=== PATIENT | female | born 1980 | race Asian ===

== ENCOUNTER → 2017-06-04 | Outpatient (CLI) | payer OTHER ==
--- NOTE | 2017-06-04 13:32 | REP ---
DIGITAL DIAGNOSTIC BILATERAL MAMMOGRAPHY AND FOCUSED LEFT BREAST SONOGRAPHY: History: Left breast mass. Grape sized. No comparison imaging. Findings: Routine views of the right breast were obtained. A opaque skin marker is affixed at the site of the palpable lump in the left breast. This projects in the upper outer quadrant. Routine views of the left breast are augmented by magnified focal spot compression images. The breast parenchyma is heterogeneously quite dense in a pattern which inhibits the sensitivity of mammography. No soft tissue mass is visible at the site of the palpable lump on the left or elsewhere on either side mammographically. No architectural distortion, microcalcification or worrisome skin change is seen. Sonographic findings: Focused left breast sonography is performed from 12 o'clock to 3 o'clock. At the level of palpable lump there is a grouping of multiple cysts adjacent to one another located 3.7 cm from the nipple. This has overall dimensions of 2.1 x 1.6 x 2.5 cm. There is a second grouping of cysts 1.8 x 0.6 x 1.3 cm in overall dimension located 3.0 cm from the nipple also at 1 o'clock. These demonstrate enhanced through transmission and a well defined back wall and are anechoic. Individual cysts within the grouping range from 3-12 mm. Impression: BI-RADS category 2 benign breast imaging. Two groupings of simple cysts adjacent to one another in the upper outer quadrant left breast at the level of palpable finding. Clinical follow-up is advised. This mammogram was interpreted with the aid of an FDA-approved computer-aided detection system. The patient states she/he had a clinical breast exam in September of 2016. The patient letter being requested is M2 dense . Signed by Ej Nunez MD 06/04/2017 03:32 P
== END ==
LOC: M RAD 10:47
PROVIDERS: ATTEND Family Medicine
DX: N63.20 Unspecified lump in the left breast, unspecified quadrant (principal)
CPT/HCPCS: 76642; G0204

== ENCOUNTER → 2017-06-11 | Outpatient (CLI) | payer OTHER ==
[~2017-06-11] MED LIST: BALANCED SALT SOLN OPHTH 15 ML BTL XX ONE; CONRAY-43 43% 50ML VIAL (Q9960) As Ordered ONE; PROPARACAINE 0.5% OPHTH SOL 15ML XX ONE
--- NOTE | 2017-06-12 09:13 | REP ---
Dacryocystography: 21 views. History: Left lacrimal stenosis. 10 seconds of fluoroscopy time is utilized. Procedure: The inferior calculus is cannulated by Dr. Lerma and contrast is injected under fluoroscopy with rapid sequence fluoroscopic spot filming. Findings: Unilateral left-sided dacryocystography is performed. The inferior calculus and common calculus are opacified. Reflux into a normal-appearing superior canaliculus is achieved and there was contrast pooling in the palpebral fissure of the left eye. The nasolacrimal sac is mildly dilated. It is obstructed inferiorly. The duct is not opacified. No contrast was seen spilling into the nasopharynx. Impression: Left nasolacrimal duct obstruction. Signed by Ej Nunez MD 06/12/2017 02:10 P
== END ==
LOC: M RAD 13:59
PROVIDERS: ATTEND Ophthalmology
DX: H04.51 Dacryolith (principal)

== ENCOUNTER 2017-07-30 07:12 | Day surgery (SDC) | payer OTHER ==
[~2017-07-30] VITALS: Ht 160 cm; Wt 71.2 kg
[~2017-07-30 07:12] MED LIST changes: -BALANCED SALT SOLN OPHTH 15 ML BTL XX ONE; -CONRAY-43 43% 50ML VIAL (Q9960) As Ordered ONE; -PROPARACAINE 0.5% OPHTH SOL 15ML XX ONE; +TRINTAB3 PO
[2017-07-30] MEDS ORDERED: LIDOCAINE 1% MDV 20ML VIAL SC ONE (07:30)
[2017-07-30] MEDS ORDERED: LR 1,000 ML IV ONE (07:30)
[2017-07-30] MEDS ORDERED: METHYLENE BLUE 0.5% (5MG/ML) 10 ML AMP (PROVAYBLUE)(Q9968 PER 1MG) As Ordered ONE (08:11)
[2017-07-30] MEDS ORDERED: EPINEPHrine 1MG/ML INJ 30ML MD-VIAL As Ordered ONE (08:11)
[2017-07-30] MEDS ORDERED: LIDOCAINE W/EPINEPHRINE 1% 20ML VIAL As Ordered ONE (08:11)
[2017-07-30] MEDS ORDERED: MIDAZOLAM INJ 2 MG/2 ML VIAL (J2250) As Ordered ONE (08:49)
[2017-07-30] MEDS ORDERED: ROCURONIUM BROMIDE 50 MG/5 ML VIAL As Ordered ONE (08:49)
[2017-07-30] MEDS ORDERED: dexameTHASONE 4 MG/ML 1ML VIAL (J1100) As Ordered ONE (08:49)
[2017-07-30] MEDS ORDERED: ONDANSETRON 4MG/2ML VIAL (J2405) As Ordered ONE (08:49)
[2017-07-30] MEDS ORDERED: PROPOFOL 500 MG/50 ML VIAL As Ordered ONE (08:49)
[2017-07-30] MEDS ORDERED: fentaNYL 250 MCG/5 ML INJECTION (J3010) As Ordered ONE (08:49)
[2017-07-30] MEDS ORDERED: PHENYLephrine HCL 500 MCG/5 ML (100MCG/ML) SYRINGE (J2370) As Ordered ONE (08:51)
[2017-07-30] MEDS ORDERED: NEOSTIGMINE 10 MG/10 ML VIAL (J2710) As Ordered ONE (09:47)
[2017-07-30] MEDS ORDERED: GLYCOPYRROLATE INJ 0.2 MG/ML 2 ML VIAL As Ordered ONE (09:47)
[2017-07-30] MEDS ORDERED: FUROSEMIDE 100 MG/10 ML VIAL (J1940) As Ordered ONE (09:47)
[2017-07-30] MEDS ORDERED: HYDROmorphone HCL 1 MG/ML SYRINGE (J1170) IV PRN (10:30)
[2017-07-30] MEDS ORDERED: ONDANSETRON 4MG/2ML VIAL (J2405) IV PRN (10:30)
[2017-07-30] MEDS ORDERED: METOCLOPRAMIDE INJ 10MG/2ML VIAL (J2765) IV PRN (10:30)
[2017-07-30] MEDS ORDERED: PERCOCET 5MG/325MG TAB PO PRN (10:30)
[2017-07-30] MEDS ORDERED: LR 1,000 ML IV SCH ×2 (10:30)
[2017-07-30] MEDS ORDERED: ACETAMINOPH W/CODEINE #3 TAB UD PO PRN (10:30)
[2017-07-30 10:45] VITALS: BP 121/68
--- NOTE | 2017-07-30 14:42 | RO ---
DATE OF PROCEDURE: 07/30/2017 PREPROCEDURE DIAGNOSIS: Left nasolacrimal duct obstruction. POSTPROCEDURE DIAGNOSIS: Left nasolacrimal duct obstruction. PROCEDURE: Left endoscopic dacryocystorhinostomy (DCR). SURGEON: Anthony Phillips MD HOSEMAN: ANESTHESIA: DESCRIPTION OF PROCEDURE: Under general anesthesia with the patient intubated, the patient was draped in the usual manner. I used pledgets of adrenaline 1:100,000 and infiltrated with Lidocaine and epinephrine. I started by first making an incision in the mucosa in the lateral nasal wall and removed the mucosa anterior to the middle turbinate and the superior turbinate. I then tried to use the drill to drill in the bone but the drill was not working so I used chisel and mallet and then the Kerrison rongeur to remove bone in the area. Once this was totally exposed the lacrimal sac, then I used cannulas to identify the inferior canaliculus and superior canaliculus and then dilated them up and then inserted a light pipe. The light pipe was advanced through the inferior canaliculus. I was in the sac and then I made an incision over the light pipe. I then removed mucosa, the lateral portion of the sac. Once this was done, then I inserted the light pipe inferiorly and brought it through the nose. I then inserted the stent inferosuperior. It was brought in through the nose. Less than 20 mL estimated blood loss. I positioned the stent well. Then I put some Hemoclips on the stent to keep it into place. Five clips were placed. The patient tolerated the procedure well. I removed the inferior portion of the stent. There was no bleeding. The patient was extubated and transferred to the recovery room in excellent condition.
== END 2017-07-30 12:00 | disposition home or self-care (01) ==
LOC: M SDC 07:12
PROVIDERS: ATTEND Otolaryngology
DX: H04.552 Acquired stenosis of left nasolacrimal duct (principal); Z79.3 Long term (current) use of hormonal contraceptives; Z98.51 Tubal ligation status; Z87.891 Personal history of nicotine dependence
CPT/HCPCS: 31239; 88305; C2625; J1100; J2250; J2370; J2405; J2710; J3010; Q9968

== ENCOUNTER → 2018-06-23 | Outpatient (REF) | payer OTHER | LOC: M SFHCLERA 14:40 | DX: R53.83 Other fatigue (principal); N92.0 Excessive and frequent menstruation with regular cycle ==

== ENCOUNTER → 2018-06-30 | Outpatient (REF) | payer OTHER ==
[2018-06-30 11:19] LABS: HEMATOCRIT 39.1 % (36.0-47.0); HEMOGLOBIN 13.1 g/dl (12.0-15.5); MEAN CORPUSCULAR HEMOGLOBIN 28.3 pg (27.0-33.0); MEAN CORPUSCULAR HGB CONC 33.5 g/dl (32.0-36.5); MEAN CORPUSCULAR VOLUME 84.4 fl (80.0-96.0); PLATELET COUNT, AUTOMATED 293 10^3/uL (150-450); RED BLOOD COUNT 4.63 10^6/uL (4.00-5.40); RED CELL DISTRIBUTION WIDTH 11.9 % (11.5-14.5); WHITE BLOOD COUNT 5.1 10^3/uL (4.0-10.0)
[2018-06-30 11:39] LABS: ANION GAP 6 MEQ/L (8-16); BLOOD UREA NITROGEN 10 MG/DL (7-18); CALCIUM LEVEL 8.4 MG/DL (8.5-10.1); CARBON DIOXIDE LEVEL 26 MEQ/L (21-32); CHLORIDE LEVEL 106 MEQ/L (98-107); CREATININE FOR GFR 0.65 MG/DL (0.55-1.30); FERRITIN 20 NG/ML (8-252); GLOMERULAR FILTRATION RATE > 60.0 (>60); GLUCOSE, FASTING 98 MG/DL (70-100); IRON (FE) 99 UG/DL (50-170); POTASSIUM SERUM 4.3 MEQ/L (3.5-5.1); SODIUM LEVEL 138 MEQ/L (136-145); TOTAL IRON BINDING CAPACITY 275 UG/DL (250-450)
[2018-06-30 11:41] LABS: FOLATE 8.9 NG/ML
== END ==
LOC: M SFHCLERA 09:00
DX: R53.83 Other fatigue (principal); N92.0 Excessive and frequent menstruation with regular cycle; L65.8 Other specified nonscarring hair loss

== ENCOUNTER → 2018-08-11 | Outpatient (REF) | payer OTHER ==
[2018-08-11 17:33] LABS: BLOOD UREA NITROGEN 11 MG/DL (7-18); CALCIUM LEVEL 8.7 MG/DL (8.5-10.1); CARBON DIOXIDE LEVEL 26 MEQ/L (21-32); CHLORIDE LEVEL 104 MEQ/L (98-107); CREATININE FOR GFR 0.66 MG/DL (0.55-1.30); GLOMERULAR FILTRATION RATE > 60.0 (>60); GLUCOSE, FASTING 79 MG/DL (70-100); POTASSIUM SERUM 4.1 MEQ/L (3.5-5.1); SODIUM LEVEL 139 MEQ/L (136-145)
== END ==
LOC: M SFHCLERA 11:17
PROVIDERS: ATTEND Family Medicine
DX: L65.8 Other specified nonscarring hair loss (principal)
CPT/HCPCS: 80048; G0463

== ENCOUNTER → 2018-09-23 | Outpatient (REF) | payer OTHER ==
[~2018-09-23] MED LIST changes: +TRINTAB PO; -TRINTAB3 PO
[2018-09-23 16:47] LABS: BLOOD UREA NITROGEN 7 MG/DL (7-18); CALCIUM LEVEL 8.7 MG/DL (8.5-10.1); CARBON DIOXIDE LEVEL 28 MEQ/L (21-32); CHLORIDE LEVEL 107 MEQ/L (98-107); CREATININE FOR GFR 0.61 MG/DL (0.55-1.30); GLOMERULAR FILTRATION RATE > 60.0 (>60); GLUCOSE, FASTING 81 MG/DL (70-100); POTASSIUM SERUM 3.9 MEQ/L (3.5-5.1); SODIUM LEVEL 141 MEQ/L (136-145)
[2018-09-27 00:06] LABS: D001-IgE D pteronyssinus <0.10 kU/L (Class 0); E001-IgE Cat Epith/Dander < 0.10 kU/L (Class 0); E005-IgE Dog Dander < 0.10 kU/L (Class 0); G002-IgE Bermuda Grass 0.77 kU/L (Class II); G008-IgE Kentucky Bluegrass 1.96 kU/L (Class III); M001-IgE Penicillium chrysogen < 0.10 kU/L (Class 0); M002 IgE Cladosporium herbaru < 0.10 kU/L (Class 0); M003 IgE Aspergillus fumigatu < 0.10 kU/L (Class 0); M006-IgE Alternaria alternata < 0.10 kU/L (Class 0); T001-IgE Maple/Box Elder < 0.10 kU/L (Class 0); T003-IgE Common Silver Birch < 0.10 kU/L (Class 0); T006-IgE Cedar, Mountain 0.41 kU/L (Class I); T007-IgE Oak, White < 0.10 kU/L (Class 0); T008-IgE Elm, American 0.13 kU/L (Class 0/I); T015-IgE Ash, White < 0.10 kU/L (Class 0); T041-IgE Hickory, White < 0.10 kU/L (Class 0); T070-IgE White Mulberry < 0.10 kU/L (Class 0); W001-IgE Ragweed, Short 4.22 kU/L (Class IV); W009-IgE Plantain, English < 0.10 kU/L (Class 0); W014-IgE Pigweed, Rough < 0.10 kU/L (Class 0); W018-IgE Sheep Sorrel < 0.10 kU/L (Class 0)
== END ==
LOC: M SFHCLERA 11:03
PROVIDERS: ATTEND Family Medicine
DX: L65.8 Other specified nonscarring hair loss (principal); L50.9 Urticaria, unspecified